=== PATIENT | male | born 1995 | race Caucasian/White ===

== ENCOUNTER 2019-05-28 04:28 | Emergency (ER) | payer SELFPAY ==
[~2019-05-28] VITALS: Ht 167.6 cm; Wt 86.2 kg
--- NOTE | 2019-05-28 04:28 | NUR ---
PT BIB [facility], PREBOOK. TAKEN TO CHAIR C
[2019-05-28 04:30] VITALS: BP 114/88
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
--- NOTE | 2019-05-28 04:32 | NUR ---
Dr. Campos examining patient.
[2019-05-28 05:10] VITALS: BP 114/88
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
== END 2019-05-28 05:10 ==
LOC: MED 04:28
DX: S00.81XA Abrasion of other part of head, initial encounter (principal); F10.129 Alcohol abuse with intoxication, unspecified; Z02.89 Encounter for other administrative examinations; V49.40XA Driver injured in collision with unspecified motor vehicles in traffic accident, initial encounter; Y93.89 Activity, other specified; Y92.89 Other specified places as the place of occurrence of the external cause; Y99.8 Other external cause status
CPT/HCPCS: 99283